=== PATIENT | female | born 1945 | race Caucasian/White ===

== ENCOUNTER 2017-04-30 13:50 | Emergency (ER) | payer MEDICARE, OTHER ==
[~2017-04-30 13:50] MED LIST: BACT800T5 PO; COUM10TA PO; METO25TA6 PO; ROSU40 PO
[2017-04-30 14:05] VITALS: BP 156/80; PULSE 68; RESP 16; TEMP 98.8; O2SAT 97
[2017-04-30] MEDS ORDERED: METO50TA PO (14:24)
[2017-04-30] MEDS ORDERED: SIMV10TA PO (14:24)
[2017-04-30] MEDS ORDERED: JANT1TAB PO (14:24)
--- NOTE | 2017-04-30 14:56 | RADRPT ---
EXAM DATE/TIME: 04/30/2017 14:28 [facility] COMPARISON: No previous studies available for comparison. INDICATIONS : Dropped top of table on top of foot yesterday. Pain on entire top of foot. MEDICAL HISTORY : Hypertension. Hypercholesterolemia. Atrial fibrilation SURGICAL HISTORY : Tubal ligation. Appendectomy.Cardiac ablation. ENCOUNTER: Initial ACUITY: 2 days PAIN SCORE: 7/10 LOCATION: Right Foot. FINDINGS: No definite fractures, dislocations, lytic, or sclerotic lesions are seen. There are degenerative eliza nges within multiple joints mainly the interphalangeal joints and the first metatarsophalangeal joint . There is slight irregularity of the second third and fourth proximal phalanges most likely chronic. CONCLUSION: Chronic changes and no evidence for acute fracture. Kaushik Best MD on April 30, 2017 at 14:51 Board Certified Radiologist. This report was verified electronically.
--- NOTE | 2017-04-30 15:14 | PD ---
HPI Chief Complaint: Injury Time Seen by Provider: 14:50 Travel History International Travel<30 days: No Contact w/Intl Traveler<30days: No Traveled to known affect area: No History of Present Illness HPI 71-year-old female presents to the emergency room for evaluation of right foot pain, swelling, and bruising after injuring it last night. Patient dropped a large glass table on the top of her foot yesterday. States she is mostly concerned because she is on blood thinners and believes her that it will continue bleeding. There is no open wound. She denies significant pain. Reports constant, aching pain worse with range of motion and ambulation. Denies paresthesias. PFSH Past Medical History Hx Anticoagulant Therapy: Yes Arthritis: No Asthma: No Atrial Fibrillation: Yes Autoimmune Disease: No Anxiety: Yes Depression: No Heart Rhythm Problems: Yes (AFIB ABLATION DONE 04/01/11 AND 04/21/11) Cancer: No Cardiomyopathy: Yes Cardiovascular Problems: Yes (afib) High Cholesterol: Yes Chemotherapy: No Chest Pain: Yes Congestive Heart Failure: No COPD: No Cerebrovascular Accident: No Diabetes: No Diminished Hearing: No Endocrine: No Gastrointestinal Disorders: No GERD: No Genitourinary: No Headaches: No Hiatal Hernia: No Heparin Induced Thrombocytopen: No Hypertension: Yes Immune Disorder: No Implanted Vascular Access Dvce: No Kidney Stones: No Musculoskeletal: No Neurologic: No Psychiatric: Yes Reproductive: No Respiratory: Yes (PULMONARY HTN) Immunizations Current: Yes Migraines: No Radiation Therapy: No Renal Failure: No Seizures: No Sickle Cell Disease: No Sleep Apnea: No Thyroid Disease: No Ulcer: No PNEUMOCCOCAL Vaccine (Year): 2009 Menopausal: Yes Tubal Ligation: Yes Past Surgical History Abdominal Surgery: No AICD: No Appendectomy: Yes (at 10 yrs old) Arteriovenous Shunt: No Cardiac Surgery: Yes (CARDIAC ABLATION 04/03 X 2) Ear Surgery: No Endocrine Surgery: No Eye Surgery: No Genitourinary Surgery: No Gynecologic Surgery: No Insulin Pump: No Joint Replacement: No Neurologic Surgery: No Oral Surgery: No Pacemaker: No Thoracic Surgery: No Other Surgery: Yes (R BREAST CYST REMOVED) Social History Alcohol Use: No Tobacco Use: No Substance Use: No Allergies-Medications (Allergen,Severity, Reaction): Coded Allergies: dabigatran etexilate (Unverified Allergy, Severe, Hives, 04/30/17) diltiazem (Unverified Allergy, Severe, Swelling/hives, 04/30/17) lisinopril (Unverified Allergy, Severe, Rash, nausea, 04/30/17) valsartan (Unverified Allergy, Severe, Swelling/hives, 04/30/17) Reported Meds & Prescriptions Reported Meds & Active Scripts Active Reported Simvastatin 10 Mg Tab 10 Mg PO DAILY Jantoven (Warfarin) 1 Mg Tab 1 Mg PO DAILY Metoprolol Tartrate 50 Mg Tab 50 Mg PO BID Review of Systems Except as stated in HPI: all other systems reviewed are Neg Physical Exam Narrative GENERAL: Well-nourished, well-developed female in no acute distress. Afebrile. Ambulatory. SKIN: Focused skin assessment warm/dry. Extreme ecchymosis of the right foot. HEAD: Normocephalic. EYES: No scleral icterus. No injection or drainage. NECK: Supple, trachea midline. No JVD or lymphadenopathy. CARDIOVASCULAR: Regular rate and rhythm without murmurs, gallops, or rubs. RESPIRATORY: Breath sounds equal bilaterally. No accessory muscle use. MSK: Full range motion of the right foot. Less than 2 second capillary refill distally. 2+ dorsalis pedis pulse. Moderate edema of the right foot. Data Data Last Documented VS Vital Signs Date Time Temp Pulse Resp B/P (MAP) Pulse Ox O2 Delivery O2 Flow Rate FiO2 04/30/17 14:05 98.8 68 16 156/80 (105) 97 Orders Orders Foot, Complete ([id number]) (04/30/17 ) [facility] Medical Decision Making Medical Screen Exam Complete: Yes Emergency Medical Condition: Yes Medical Record Reviewed: Yes Differential Diagnosis Contusion, ecchymosis, hematoma, fracture, sprain, strain Narrative Course 71-year-old female presents to the emergency room for evaluation of right foot pain, bruising, and swelling after injuring it last night. Patient dropped a large table on top of her foot. Right lower extremity is neurovascularly intact with 2+ dorsalis pedis pulse. Full range of motion. Less than 2 second capillary refill distally and distal sensation intact. There is extreme ecchymosis and moderate edema of the right foot. X-ray of the foot is negative. This is contusion. Patient given signs and symptoms of compartment syndrome should swelling continued. She was told to follow-up with her primary care physician, elevate, ice, and take Tylenol for pain. Told to return for worsening symptoms as needed. She understands and agrees to plan. Diagnosis Primary Impression: Contusion of right foot Qualified Codes: S90.31XA - Contusion of right foot, initial encounter Referrals: Primary Care Physician Additional Instructions: Rest and drink plenty of fluids. Take Tylenol as directed, as needed for pain. Apply ice to the affected area for 20 minutes at a time, as needed for pain and swelling. Follow-up with a primary care physician. Return to the emergency room for worsening symptoms. Disposition: 01 DISCHARGE HOME Condition: Stable Maryan Grimes Apr 30, 2017 15:14
== END 2017-04-30 15:24 | disposition home or self-care (01) ==
LOC: PHEFT 13:50
DX: S90.31XA Contusion of right foot, initial encounter (principal); I48.91 Unspecified atrial fibrillation; Z79.01 Long term (current) use of anticoagulants; I42.9 Cardiomyopathy, unspecified; I10 Essential (primary) hypertension; E78.00 Pure hypercholesterolemia, unspecified; W20.8XXA Other cause of strike by thrown, projected or falling object, initial encounter; Y99.8 Other external cause status
CPT/HCPCS: 73630; 99283

== ENCOUNTER 2017-12-31 05:38 | Emergency (ER) | payer OTHER ==
[~2017-12-31] VITALS: Ht 167.6 cm; Wt 91.5 kg
[~2017-12-31 05:38] MED LIST changes: -BACT800T5 PO; -COUM10TA PO; +JANT1TAB PO; -METO25TA6 PO; +METO50TA PO; -ROSU40 PO; +SIMV10TA PO
[2017-12-31 05:42] VITALS: BP 179/84; PULSE 70; RESP 18; TEMP 98.4; O2SAT 98
--- NOTE | 2017-12-31 06:26 | PD ---
HPI Chief Complaint: GI Complaint Time Seen by Provider: 05:55 (Portillo Mak MD) Travel History International Travel<30 days: No Contact w/Intl Traveler<30days: No Traveled to known affect area: No (Portillo Mak MD) History of Present Illness HPI Patient has had 4 days of right upper quadrant pain started as a pressure burning-like pain.. Now is radiating towards her mid back pressure that is progressively getting worse. It is not responding to Tylenol. She did not take any other antacids or other medications but she denies any stomach involvement. In 1991 she had a cystlike structure removed from this area but she is unclear whether it was a lipoma or something to do with her liver. Otherwise she does not have any prior surgeries she has not seen another doctor and the pain continues in the ER (Portillo Mak MD) PFSH Past Medical History Hx Anticoagulant Therapy: Yes Arthritis: No Asthma: No Atrial Fibrillation: Yes Autoimmune Disease: No Anxiety: Yes Depression: No Heart Rhythm Problems: Yes (AFIB ABLATION DONE 04/01/11 AND 04/21/11) Cancer: No Cardiomyopathy: Yes Cardiovascular Problems: Yes (afib) High Cholesterol: Yes Chemotherapy: No Chest Pain: Yes Congestive Heart Failure: No COPD: No Cerebrovascular Accident: No Diabetes: No Diminished Hearing: No Endocrine: No Gastrointestinal Disorders: No GERD: No Genitourinary: No Headaches: No Hiatal Hernia: No Heparin Induced Thrombocytopen: No Hypertension: Yes Immune Disorder: No Implanted Vascular Access Dvce: No Kidney Stones: No Musculoskeletal: No Neurologic: No Psychiatric: Yes Reproductive: No Respiratory: Yes (PULMONARY HTN) Immunizations Current: Yes Migraines: No Radiation Therapy: No Renal Failure: No Seizures: No Sickle Cell Disease: No Sleep Apnea: No Thyroid Disease: No Ulcer: No Tetanus Vaccination: < 5 Years PNEUMOCCOCAL Vaccine (Year): 2009 LMP: menopause Menopausal: Yes Tubal Ligation: Yes (Portillo Mak MD) Past Surgical History Abdominal Surgery: No AICD: No Appendectomy: Yes (at 10 yrs old) Arteriovenous Shunt: No Cardiac Surgery: Yes (CARDIAC ABLATION 04/03 X 2) Ear Surgery: No Endocrine Surgery: No Eye Surgery: No Genitourinary Surgery: No Gynecologic Surgery: No Insulin Pump: No Joint Replacement: No Neurologic Surgery: No Oral Surgery: No Pacemaker: No Thoracic Surgery: No Other Surgery: Yes (R BREAST CYST REMOVED) (Portillo Mak MD) Social History Alcohol Use: No Tobacco Use: No Substance Use: No (Portillo Mak MD) Allergies-Medications (Allergen,Severity, Reaction): Coded Allergies: dabigatran etexilate (Verified Allergy, Severe, Hives, 12/31/17) diltiazem (Verified Allergy, Severe, Swelling/hives, 12/31/17) lisinopril (Verified Allergy, Severe, Rash, nausea, 12/31/17) valsartan (Verified Allergy, Severe, Swelling/hives, 12/31/17) Reported Meds & Prescriptions Reported Meds & Active Scripts Active Reported Simvastatin 10 Mg Tab 10 Mg PO DAILY Jantoven (Warfarin) 1 Mg Tab 1 Mg PO DAILY Metoprolol Tartrate 50 Mg Tab 50 Mg PO BID (Navneet Tucker MD) Review of Systems Except as stated in HPI: all other systems reviewed are Neg (Portillo Mak MD) General / Constitutional: No: Fever, Chills Gastrointestinal: No: Vomiting, Diarrhea Skin: No Rash Neurologic: No: Weakness Hematologic/Lymphatic: No: Easy Bruising (Navneet Tucker MD) Physical Exam Narrative GENERAL: Awake alert oriented 3 SKIN: Warm and dry. HEAD: Atraumatic. Normocephalic. EYES: Pupils equal and round. No scleral icterus. No injection or drainage. ENT: No nasal bleeding or discharge. Mucous membranes pink and moist. NECK: Trachea midline. No JVD. CARDIOVASCULAR: Regular rate and rhythm. RESPIRATORY: No accessory muscle use. Clear to auscultation. Breath sounds equal bilaterally. GASTROINTESTINAL: Abdomen positive tenderness in the right upper quadrant no CVA tenderness old scar incision for the cyst that was removed right above her gallbladder area MUSCULOSKELETAL: Extremities without clubbing, cyanosis, or edema. No obvious deformities. NEUROLOGICAL: Awake and alert. No obvious cranial nerve deficits. Motor grossly within normal limits. Five out of 5 muscle strength in the arms and legs. Normal speech. PSYCHIATRIC: Appropriate mood and affect; insight and judgment normal. (Portillo Mak MD) Narrative GENERAL: Well-developed female SKIN: Focused skin assessment warm/dry. HEAD: Atraumatic. Normocephalic. EYES: Pupils equal and round. No scleral icterus. No injection or drainage. ENT: No nasal bleeding or discharge. Mucous membranes pink and moist. NECK: Trachea midline. No JVD. CARDIOVASCULAR: Regular rate and rhythm. No murmur appreciated. RESPIRATORY: No accessory muscle use. Clear to auscultation. Breath sounds equal bilaterally. There is some tenderness of the rib cage around the diaphragm on the right, greatest at the mid axillary line. There is no crepitus felt GASTROINTESTINAL: Abdomen soft, non-tender, nondistended. Hepatic and splenic margins not palpable. MUSCULOSKELETAL: No obvious deformities. No clubbing. No cyanosis. No edema. NEUROLOGICAL: Awake and alert. No obvious cranial nerve deficits. Motor grossly within normal limits. Normal speech. PSYCHIATRIC: Appropriate mood and affect; insight and judgment normal. (Navneet Tucker MD) Data Data Last Documented VS Vital Signs Date Time Temp Pulse Resp B/P (MAP) Pulse Ox O2 Delivery O2 Flow Rate FiO2 12/31/17 06:59 16 12/31/17 05:42 98.4 70 179/84 (115) 98 (Navneet Tucker MD) Orders Orders Complete Blood Count With Diff (12/31/17 06:10) Comprehensive Metabolic Panel (12/31/17 06:10) Lipase (12/31/17 06:10) Urinalysis - C+S If Indicated (12/31/17 06:10) Sodium Chlorid 0.9% 500 Ml Inj (Ns 500 M (12/31/17 06:30) Chest, Pa & Lat (12/31/17 ) Prothrombin Time / Inr (Pt) (12/31/17 07:04) Act Partial Throm Time (Ptt) (12/31/17 07:04) Ct Abd/Pel W Iv Contrast(Rout) (12/31/17 07:04) Iohexol 350 Inj (Omnipaque 350 Inj) (12/31/17 07:36) (Navneet Tucker MD) Labs Laboratory Tests Test 12/31/17 06:23 12/31/17 06:28 12/31/17 07:11 Urine Color YELLOW Urine Turbidity CLEAR Urine pH 5.5 Urine Specific [place] LESS/EQUAL 1.005 Urine Protein NEG mg/dL Urine Glucose (UA) NEG mg/dL Urine Ketones NEG mg/dL Urine Occult Blood LARGE Urine Nitrite NEG Urine Bilirubin NEG Urine Urobilinogen 0.2 MG/DL Urine Leukocyte Esterase NEG Urine RBC 0-3 /hpf Urine WBC 0-2 /hpf Microscopic Urinalysis Comment CULT NOT INDICATED White Blood Count 7.2 TH/MM3 Red Blood Count 4.71 MIL/MM3 Hemoglobin 13.7 GM/DL Hematocrit 40.8 % Mean Corpuscular Volume 86.5 FL Mean Corpuscular Hemoglobin 29.0 PG Mean Corpuscular Hemoglobin Concent 33.5 % Red Cell Distribution Width 13.4 % Platelet Count 215 TH/MM3 Mean Platelet Volume 8.7 FL Neutrophils (%) (Auto) 63.4 % Lymphocytes (%) (Auto) 25.0 % Monocytes (%) (Auto) 8.1 % Eosinophils (%) (Auto) 2.7 % Basophils (%) (Auto) 0.8 % Neutrophils # (Auto) 4.4 TH/MM3 Lymphocytes # (Auto) 1.8 TH/MM3 Monocytes # (Auto) 0.6 TH/MM3 Eosinophils # (Auto) 0.2 TH/MM3 Basophils # (Auto) 0.1 TH/MM3 CBC Comment DIFF FINAL Differential Comment Blood Urea Nitrogen 14 MG/DL Creatinine 0.59 MG/DL Random Glucose 106 MG/DL Total Protein 7.4 GM/DL Albumin 3.8 GM/DL Calcium Level 9.2 MG/DL Alkaline Phosphatase 121 U/L Aspartate Amino Transf (AST/SGOT) 25 U/L Alanine Aminotransferase (ALT/SGPT) 41 U/L Total Bilirubin 0.5 MG/DL Sodium Level 141 MEQ/L Potassium Level 3.7 MEQ/L Chloride Level 108 MEQ/L Carbon Dioxide Level 26.5 MEQ/L Anion Gap 7 MEQ/L Estimat Glomerular Filtration Rate 100 ML/MIN Lipase 96 U/L Prothrombin Time 27.5 SEC Prothromb Time International Ratio 2.7 RATIO Activated Partial Thromboplast Time 37.7 SEC (Navneet Tucker MD) [facility] Medical Decision Making Medical Screen Exam Complete: Yes Emergency Medical Condition: Yes (Portillo Mak MD) Medical Screen Exam Complete: Yes Emergency Medical Condition: Yes Medical Record Reviewed: Yes Differential Diagnosis Differential includes neuralgia, kidney stone, cholelithiasis, prodrome of zoster Narrative Course CT scan was done and does not show an etiology for the pain. Her pain is not related to eating and so gallbladder disease seems unlikely. There is no hematuria. This is suggestive of a neuralgia as it does somewhat wraparound the chest wall. She is on Coumadin so is limited what she can take for pain. It has been keeping her awake. I will prescribe some Flexeril to see if this helps her at night. (Navneet Tucker MD) Diagnosis Primary Impression: Right upper quadrant pain Scripts Cyclobenzaprine (Flexeril) 10 Mg Tab 10 MG PO TID for Muscle Spasm for 7 Days, #20 TAB 0 Refills Prov: Navneet Tucker MD 12/31/17 Disposition: 01 DISCHARGE HOME Condition: Stable Portillo Mak MD December 31, 2017 06:26 Navneet Tucker MD December 31, 2017 08:22
[2017-12-31] MEDS ORDERED: SODIUM CHLORID 0.9% 500 ML INJ 500 ML IV ONE (06:30)
[2017-12-31 06:45] LABS: AUTOMATED NEUTROPHIL # 4.4 TH/MM3 (1.8-7.7); BASOPHIL # 0.1 TH/MM3 (0-0.2); BASOPHIL % 0.8 % (0.0-2.0); EOSINOPHIL # 0.2 TH/MM3 (0-0.4); EOSINOPHIL % 2.7 % (0.0-4.0); HEMATOCRIT 40.8 % (35.0-46.0); HEMOGLOBIN 13.7 GM/DL (11.6-15.3); LYMPHOCYTE # 1.8 TH/MM3 (1.0-4.8); MEAN CELL VOLUME 86.5 FL (80.0-100.0); MEAN CORPUSCULAR HGB CONC 33.5 % (32.0-36.0); MEAN PLATELET VOLUME 8.7 FL (7.0-11.0); MONO % 8.1 % (0.0-8.0); MONOCYTE # 0.6 TH/MM3 (0-0.9); NEUT % 63.4 % (16.0-70.0); PLATELET COUNT 215 TH/MM3 (150-450); RED BLOOD COUNT 4.71 MIL/MM3 (4.00-5.30); RED CELL DISTRIBUTION WIDTH 13.4 % (11.6-17.2); WHITE BLOOD COUNT 7.2 TH/MM3 (4.0-11.0)
[2017-12-31 06:50] LABS: CHLORIDE 108 MEQ/L (98-107); SODIUM (NA) 141 MEQ/L (136-145)
[2017-12-31 06:50] LABS: BILIRUBIN, URINE NEG (NEG); BLOOD, URINE LARGE (NEG); GLUCOSE,URINE NEG (NEG); KETONE, URINE NEG (NEG); NITRITE,URINE NEG (NEG); PH, URINE 5.5 (5.0-8.5); URINE COLOR YELLOW (YELLW/STRAW); URINE LEUKOCYTE ESTERASE NEG (NEG)
--- NOTE | 2017-12-31 06:51 | RADRPT ---
EXAM DATE/TIME: 12/31/2017 06:33 [facility] COMPARISON: CHEST SINGLE AP, September 15, 2015, 18:27. INDICATIONS : Right sided chest pain for 4 days MEDICAL HISTORY : None. SURGICAL HISTORY : None. ENCOUNTER: Initial ACUITY: 4 - 6 days PAIN SCORE: 7/10 LOCATION: Right chest FINDINGS: PA and lateral views of the chest demonstrate the lungs to be symmetrically aerated without evidence of mass, infiltrate or effusion. The cardiomediastinal contours are unremarkable. Osseous structure s are intact. CONCLUSION: No acute disease. Rob Mason MD on December 31, 2017 at 6:49 Board Certified Radiologist. This report was verified electronically.
[2017-12-31 06:54] LABS: ALBUMIN 3.8 GM/DL (3.4-5.0); BICARBONATE 26.5 MEQ/L (21.0-32.0); BLOOD UREA NITROGEN 14 MG/DL (7-18); CALCIUM 9.2 MG/DL (8.5-10.1); GLUCOSE,RANDOM 106 MG/DL (74-106)
[2017-12-31 06:55] LABS: RBC, URINE 0-3 /hpf (0-3); WBC, URINE 0-2 /hpf (0-5)
[2017-12-31 06:57] LABS: ALT (GPT) 41 U/L (10-53); AST (GOT) 25 U/L (15-37); CREATININE 0.59 MG/DL (0.50-1.00); GLOMERULAR FILTRATION RATE 100 ML/MIN (>89)
[2017-12-31 06:59] LABS: TOTAL BILIRUBIN ADULT 0.5 MG/DL (0.2-1.0); TOTAL PROTEIN 7.4 GM/DL (6.4-8.2)
[2017-12-31 07:00] LABS: ALKALINE PHOSPHATASE 121 U/L (45-117)
--- NOTE | 2017-12-31 07:14 | PD ---
HPI Chief Complaint: GI Complaint Time Seen by Provider: 07:07 Travel History International Travel<30 days: No Contact w/Intl Traveler<30days: No Traveled to known affect area: No History of Present Illness HPI 72-year-old female is having pain in the right upper quadrant/right flank area. She says the pains been going on for 3 or 4 days. It was initially intermittent but now is been fairly constant. It is not affected by eating. It does not appear to be affected by movement. There is no history of trauma. There is no fever or chills. PFSH Past Medical History Hx Anticoagulant Therapy: Yes Arthritis: No Asthma: No Atrial Fibrillation: Yes Autoimmune Disease: No Anxiety: Yes Depression: No Heart Rhythm Problems: Yes (AFIB ABLATION DONE 04/01/11 AND 04/21/11) Cancer: No Cardiomyopathy: Yes Cardiovascular Problems: Yes (afib) High Cholesterol: Yes Chemotherapy: No Chest Pain: Yes Congestive Heart Failure: No COPD: No Cerebrovascular Accident: No Diabetes: No Diminished Hearing: No Endocrine: No Gastrointestinal Disorders: No GERD: No Genitourinary: No Headaches: No Hiatal Hernia: No Heparin Induced Thrombocytopen: No Hypertension: Yes Immune Disorder: No Implanted Vascular Access Dvce: No Kidney Stones: No Musculoskeletal: No Neurologic: No Psychiatric: Yes Reproductive: No Respiratory: Yes (PULMONARY HTN) Immunizations Current: Yes Migraines: No Radiation Therapy: No Renal Failure: No Seizures: No Sickle Cell Disease: No Sleep Apnea: No Thyroid Disease: No Ulcer: No Tetanus Vaccination: < 5 Years PNEUMOCCOCAL Vaccine (Year): 2009 LMP: menopause Menopausal: Yes Tubal Ligation: Yes Past Surgical History Abdominal Surgery: No AICD: No Appendectomy: Yes (at 10 yrs old) Arteriovenous Shunt: No Cardiac Surgery: Yes (CARDIAC ABLATION 04/03 X 2) Ear Surgery: No Endocrine Surgery: No Eye Surgery: No Genitourinary Surgery: No Gynecologic Surgery: No Insulin Pump: No Joint Replacement: No Neurologic Surgery: No Oral Surgery: No Pacemaker: No Thoracic Surgery: No Other Surgery: Yes (R BREAST CYST REMOVED) Social History Alcohol Use: No Tobacco Use: No Substance Use: No Allergies-Medications (Allergen,Severity, Reaction): Coded Allergies: dabigatran etexilate (Verified Allergy, Severe, Hives, 12/31/17) diltiazem (Verified Allergy, Severe, Swelling/hives, 12/31/17) lisinopril (Verified Allergy, Severe, Rash, nausea, 12/31/17) valsartan (Verified Allergy, Severe, Swelling/hives, 12/31/17) Reported Meds & Prescriptions Reported Meds & Active Scripts Active Flexeril (Cyclobenzaprine HCl) 10 Mg Tab 10 Mg PO TID 7 Days Reported Simvastatin 10 Mg Tab 10 Mg PO DAILY Jantoven (Warfarin) 1 Mg Tab 1 Mg PO DAILY Metoprolol Tartrate 50 Mg Tab 50 Mg PO BID Review of Systems General / Constitutional: No: Fever, Chills Respiratory: No: Cough, Shortness of Breath Gastrointestinal: No: Nausea Genitourinary: No: Frequency Musculoskeletal: Positive: Pain Physical Exam Narrative GENERAL: Well-developed female SKIN: Focused skin assessment warm/dry. HEAD: Atraumatic. Normocephalic. EYES: Pupils equal and round. No scleral icterus. No injection or drainage. ENT: No nasal bleeding or discharge. Mucous membranes pink and moist. NECK: Trachea midline. No JVD. CARDIOVASCULAR: Regular rate and rhythm. No murmur appreciated. RESPIRATORY: No accessory muscle use. Clear to auscultation. Breath sounds equal bilaterally. There is some tenderness in the right lateral rib cage around the midaxillary line is no discernible swelling GASTROINTESTINAL: Abdomen soft, non-tender, nondistended. Hepatic and splenic margins not palpable. MUSCULOSKELETAL: No obvious deformities. No clubbing. No cyanosis. No edema. NEUROLOGICAL: Awake and alert. No obvious cranial nerve deficits. Motor grossly within normal limits. Normal speech. PSYCHIATRIC: Appropriate mood and affect; insight and judgment normal. Data Data Last Documented VS Vital Signs Date Time Temp Pulse Resp B/P (MAP) Pulse Ox O2 Delivery O2 Flow Rate FiO2 12/31/17 08:31 62 18 151/83 (105) 98 21 12/31/17 05:42 98.4 Orders Orders Complete Blood Count With Diff (12/31/17 06:10) Comprehensive Metabolic Panel (12/31/17 06:10) Lipase (12/31/17 06:10) Urinalysis - C+S If Indicated (12/31/17 06:10) Sodium Chlorid 0.9% 500 Ml Inj (Ns 500 M (12/31/17 06:30) Chest, Pa & Lat (12/31/17 ) Prothrombin Time / Inr (Pt) (12/31/17 07:04) Act Partial Throm Time (Ptt) (12/31/17 07:04) Ct Abd/Pel W Iv Contrast(Rout) (12/31/17 07:04) Iohexol 350 Inj (Omnipaque 350 Inj) (12/31/17 07:36) Ed Discharge Order (12/31/17 08:23) Labs Laboratory Tests Test 12/31/17 06:23 12/31/17 06:28 12/31/17 07:11 Urine Color YELLOW Urine Turbidity CLEAR Urine pH 5.5 Urine Specific [place] LESS/EQUAL 1.005 Urine Protein NEG mg/dL Urine Glucose (UA) NEG mg/dL Urine Ketones NEG mg/dL Urine Occult Blood LARGE Urine Nitrite NEG Urine Bilirubin NEG Urine Urobilinogen 0.2 MG/DL Urine Leukocyte Esterase NEG Urine RBC 0-3 /hpf Urine WBC 0-2 /hpf Microscopic Urinalysis Comment CULT NOT INDICATED White Blood Count 7.2 TH/MM3 Red Blood Count 4.71 MIL/MM3 Hemoglobin 13.7 GM/DL Hematocrit 40.8 % Mean Corpuscular Volume 86.5 FL Mean Corpuscular Hemoglobin 29.0 PG Mean Corpuscular Hemoglobin Concent 33.5 % Red Cell Distribution Width 13.4 % Platelet Count 215 TH/MM3 Mean Platelet Volume 8.7 FL Neutrophils (%) (Auto) 63.4 % Lymphocytes (%) (Auto) 25.0 % Monocytes (%) (Auto) 8.1 % Eosinophils (%) (Auto) 2.7 % Basophils (%) (Auto) 0.8 % Neutrophils # (Auto) 4.4 TH/MM3 Lymphocytes # (Auto) 1.8 TH/MM3 Monocytes # (Auto) 0.6 TH/MM3 Eosinophils # (Auto) 0.2 TH/MM3 Basophils # (Auto) 0.1 TH/MM3 CBC Comment DIFF FINAL Differential Comment Blood Urea Nitrogen 14 MG/DL Creatinine 0.59 MG/DL Random Glucose 106 MG/DL Total Protein 7.4 GM/DL Albumin 3.8 GM/DL Calcium Level 9.2 MG/DL Alkaline Phosphatase 121 U/L Aspartate Amino Transf (AST/SGOT) 25 U/L Alanine Aminotransferase (ALT/SGPT) 41 U/L Total Bilirubin 0.5 MG/DL Sodium Level 141 MEQ/L Potassium Level 3.7 MEQ/L Chloride Level 108 MEQ/L Carbon Dioxide Level 26.5 MEQ/L Anion Gap 7 MEQ/L Estimat Glomerular Filtration Rate 100 ML/MIN Lipase 96 U/L Prothrombin Time 27.5 SEC Prothromb Time International Ratio 2.7 RATIO Activated Partial Thromboplast Time 37.7 SEC MDM Medical Decision Making Medical Screen Exam Complete: Yes Emergency Medical Condition: Yes Medical Record Reviewed: Yes Differential Diagnosis Differential includes biliary disease, neuralgia, renal colic, Narrative Course CT was obtained and does not show an etiology for the pain. Suspect this is a neuralgia. Possibility also of prodrome of shingles Diagnosis Primary Impression: Right upper quadrant pain Scripts Cyclobenzaprine (Flexeril) 10 Mg Tab 10 MG PO TID for Muscle Spasm for 7 Days, #20 TAB 0 Refills Prov: Navneet Tucker MD 12/31/17 Disposition: 01 DISCHARGE HOME Condition: Stable Navneet Tucker MD December 31, 2017 07:14
[2017-12-31 07:33] LABS: INTERNATIONAL NORMALIZED RATIO 2.7 RATIO; PROTHROMBIN TIME - PATIENT 27.5 SEC (9.8-11.6)
[2017-12-31] MEDS ORDERED: IOHEXOL 350 MG/ML 10 ML VIAL (for RAD DIAG) IVCONTRAST ONE (07:36)
--- NOTE | 2017-12-31 07:55 | RADRPT ---
EXAM DATE/TIME: 12/31/2017 07:28 [place] COMPARISON: CT ABDOMEN & PELVIS W CONTRAST, September 15, 2015, 19:37. INDICATIONS : Right upper quadrant and right flank pain x 4 days. IV CONTRAST: 90 cc Omnipaque 350 (iohexol) IV ORAL CONTRAST: No oral contrast ingested. RADIATION DOSE: 18.76 CTDIvol (mGy) MEDICAL HISTORY : Cardiovascular disease. Hypertension. Aneurysm, abdominal. SURGICAL HISTORY : Abdominal aortic aneurysm repair. Tubal ligation.Cardiac ablation. ENCOUNTER: Initial ACUITY: 4 - 6 days PAIN SCALE: 4/10 LOCATION: Right upper quadrant TECHNIQUE: Volumetric scanning of the abdomen and pelvis was performed. Using automated exposure control and ad justment of the mA and/or kV according to patient size, radiation dose was kept as low as reasonably achievable to obtain optimal diagnostic quality images. DICOM format image data is available electro nically for review and comparison. FINDINGS: LOWER LUNGS: The visualized lower lungs are clear. LIVER: Sub-5 mm hypodense lesions in segments 7 and 4 the liver which are too small to fully characterize. M inimal focal fat adjacent to falciform ligament in segment 2. Liver is otherwise unremarkable. No zack cified gallstones. SPLEEN: Normal size without lesion. PANCREAS: Within normal limits. KIDNEYS: Normal in size and shape. There is no mass, stone or hydronephrosis. ADRENAL GLANDS: Within normal limits. VASCULAR: Abdominal aorta is non-aneurysmal despite history. BOWEL/MESENTERY: Mild sigmoid diverticulosis. Bowel otherwise appears unremarkable without evidence for obstruction. N o pneumatosis or free air. No drainable fluid collections. ABDOMINAL WALL: Very small fat containing periumbilical hernia. RETROPERITONEUM: There is no lymphadenopathy. BLADDER: No wall thickening or mass. REPRODUCTIVE: 3.2 x 1.3 cm right adnexal hypodense lesion not previously demonstrated, likely ovarian in etiology. INGUINAL: There is no lymphadenopathy or hernia. MUSCULOSKELETAL: Multilevel degenerative spondylosis of the lumbar spine. CONCLUSION: 1. No acute CT abnormality in the abdomen or pelvis. 2. 3.2 x 1.3 cm right adnexal hypodense lesion not demonstrated on CT examination of 09/15/2015. This is likely ovarian in etiology and may reflect an ovarian cystic lesion. Further evaluation may be per formed with pelvic ultrasound exam on an outpatient basis as clinically warranted. 3. Ancillary findings include sigmoid diverticulosis, very small fat containing periumbilical hernia, and stable sub-5 mm hypodense lesions in the liver which are too small to fully characterize but lik marlo reflecting cysts. David Hart MD on December 31, 2017 at 7:43 Board Certified Radiologist. This report was verified electronically.
[2017-12-31] MEDS ORDERED: CYCL10TA PO (08:21)
[2017-12-31 08:31] VITALS: BP 151/83
== END 2017-12-31 08:32 | disposition home or self-care (01) ==
LOC: PHED 05:38
DX: R10.11 Right upper quadrant pain (principal); I48.91 Unspecified atrial fibrillation; K57.30 Diverticulosis of large intestine without perforation or abscess without bleeding; K42.9 Umbilical hernia without obstruction or gangrene; F41.9 Anxiety disorder, unspecified; I42.9 Cardiomyopathy, unspecified; E78.00 Pure hypercholesterolemia, unspecified; I10 Essential (primary) hypertension; Z79.899 Other long term (current) drug therapy
CPT/HCPCS: 71046; 74177; 80053; 81001; 83690; 85025; 85610; 85730; 99285; J7040; Q9967

== ENCOUNTER 2018-01-03 09:16 | Emergency (ER) | payer OTHER ==
[~2018-01-03] VITALS: Ht 167.6 cm; Wt 98.2 kg
[~2018-01-03 09:16] MED LIST changes: +CYCL10TA PO
[2018-01-03 09:38] VITALS: BP 169/78; PULSE 64; RESP 16; TEMP 98.2; O2SAT 98
[2018-01-03] MEDS ORDERED: LORA0.5T PO (10:01)
[2018-01-03] MEDS ORDERED: JANT7.5T PO (10:01)
[2018-01-03] MEDS ORDERED: JANT5TAB PO (10:01)
[2018-01-03] MEDS ORDERED: ROSU5 PO (10:01)
[2018-01-03] MEDS ORDERED: PERC5TAB12 PO (10:38)
[2018-01-03] MEDS: oxyCODONE/ACETAMINOPHEN 5 MG/325 MG TAB PO ONE (10:38)
[2018-01-03] MEDS ORDERED: MEDR4PAK PO (10:38)
[2018-01-03] MEDS ORDERED: ACYC800T PO (10:38)
--- NOTE | 2018-01-03 10:38 | PD ---
HPI Chief Complaint: Skin Problem Time Seen by Provider: 09:58 Travel History International Travel<30 days: No Contact w/Intl Traveler<30days: No Traveled to known affect area: No History of Present Illness HPI This is a 72-year-old female here with a painful rash of her right mid back wrapping around to the right breast. Rash erupted last night. Denies fever chills. She was seen several days prior for right upper quadrant pain and told that this was possibly early shingles. Symptom severity is moderate. She reports constant pain at the site of the rash. No aggravating or alleviating factors. PFSH Past Medical History Hx Anticoagulant Therapy: Yes Arthritis: No Asthma: No Atrial Fibrillation: Yes Autoimmune Disease: No Anxiety: Yes Depression: No Heart Rhythm Problems: Yes (AFIB ABLATION DONE 04/01/11 AND 04/21/11) Cancer: No Cardiomyopathy: Yes Cardiovascular Problems: Yes (afib) High Cholesterol: Yes Chemotherapy: No Chest Pain: Yes Congestive Heart Failure: No COPD: No Cerebrovascular Accident: No Diabetes: No Diminished Hearing: No Endocrine: No Gastrointestinal Disorders: No GERD: No Genitourinary: No Headaches: No Hiatal Hernia: No Heparin Induced Thrombocytopen: No Hypertension: Yes Immune Disorder: No Implanted Vascular Access Dvce: No Kidney Stones: No Musculoskeletal: No Neurologic: No Psychiatric: Yes Reproductive: No Respiratory: Yes (PULMONARY HTN) Immunizations Current: Yes Migraines: No Radiation Therapy: No Renal Failure: No Seizures: No Sickle Cell Disease: No Sleep Apnea: No Thyroid Disease: No Ulcer: No PNEUMOCCOCAL Vaccine (Year): 2009 ?: Not Menopausal: Yes Tubal Ligation: Yes Past Surgical History Abdominal Surgery: No AICD: No Appendectomy: Yes (at 10 yrs old) Arteriovenous Shunt: No Cardiac Surgery: Yes (CARDIAC ABLATION 04/03 X 2) Ear Surgery: No Endocrine Surgery: No Eye Surgery: No Genitourinary Surgery: No Gynecologic Surgery: No Insulin Pump: No Joint Replacement: No Neurologic Surgery: No Oral Surgery: No Pacemaker: No Thoracic Surgery: No Other Surgery: Yes (R BREAST CYST REMOVED) Social History Alcohol Use: No Tobacco Use: No Substance Use: No Allergies-Medications (Allergen,Severity, Reaction): Coded Allergies: dabigatran etexilate (Verified Allergy, Severe, Hives, 01/03/18) diltiazem (Verified Allergy, Severe, Swelling/hives, 01/03/18) lisinopril (Verified Allergy, Severe, Rash, nausea, 01/03/18) valsartan (Verified Allergy, Severe, Swelling/hives, 01/03/18) Reported Meds & Prescriptions Reported Meds & Active Scripts Active Medrol Dosepak (Methylprednisolone) 4 Mg Dspk 4 Mg PO DIRECTED Per Pharmacist direction Percocet (Oxycodone-Acetaminophen) 5-325 mg Tab 1 Tab PO Q6H PRN Acyclovir 800 Mg Tab 800 Mg PO 5 TIMES A DAY 7 Days Reported Lorazepam 0.5 Mg Tab 0.5 Mg PO DAILY PRN Crestor (Rosuvastatin Calcium) 5 Mg Tab 5 Mg PO DAILY Jantoven (Warfarin) 5 Mg Tab 5 Mg PO TUTHSASU Jantoven (Warfarin) 7.5 Mg Tab 7.5 Mg PO MOWEFR Metoprolol Tartrate 50 Mg Tab 50 Mg PO BID Review of Systems Except as stated in HPI: all other systems reviewed are Neg Physical Exam Narrative GENERAL: Alert and well-appearing 72-year-old female SKIN: Warm and dry. Erythematous vesicular rash to the right thorax wrapping around to the right breast it does not cross the midline. This appears to be herpes zoster. Area is painful to palpation HEAD: Normocephalic. EYES: No scleral icterus. No injection or drainage. NECK: Supple CARDIOVASCULAR: Regular rate and rhythm without murmurs, gallops, or rubs. RESPIRATORY: Breath sounds equal bilaterally. No accessory muscle use. GASTROINTESTINAL: Abdomen soft, non-tender, nondistended. MUSCULOSKELETAL: No cyanosis, or edema. BACK: Nontender without obvious deformity. No CVA tenderness. Data Data Last Documented VS Vital Signs Date Time Temp Pulse Resp B/P (MAP) Pulse Ox O2 Delivery O2 Flow Rate FiO2 01/03/18 09:38 98.2 64 16 169/78 (108) 98 Orders Orders Ondansetron Odt (Zofran Odt) (01/03/18 10:45) Oxycodone-Acetamin 5-325 Mg (Percocet (01/03/18 10:45) MDM Medical Decision Making Medical Screen Exam Complete: Yes Emergency Medical Condition: Yes Differential Diagnosis Herpes zoster, contact dermatitis, other Narrative Course 72-year-old female here with herpes zoster Diagnosis Primary Impression: Herpes zoster Qualified Codes: B02.9 - Zoster without complications Referrals: Primary Care Physician Additional Instructions: Medications as directed. Applying cool compresses to the area may help alleviate some pain. Follow-up with her primary doctor. Scripts Methylprednisolone Dosepak (Medrol Dosepak) 4 Mg Dspk 4 MG PO DIRECTED, #1 DSPK 0 Refills Per Pharmacist direction Prov: Rosa Isela Bahena 01/03/18 Oxycodone-Acetaminophen (Percocet) 5-325 mg Tab 1 TAB PO Q6H Y for PAIN, #15 TAB 0 Refills Prov: Rosa Isela Bahena 01/03/18 Acyclovir (Acyclovir) 800 Mg Tab 800 MG PO 5 TIMES A DAY for Mgmt Viral Infection for 7 Days, TAB 0 Refills Prov: Rosa Isela Bahena 01/03/18 Disposition: 01 DISCHARGE HOME Condition: Stable Rosa Isela Bahena January 03, 2018 10:38
[2018-01-03] MEDS: ONDANSETRON ODT 4 MG TAB PO ONE (10:39)
== END 2018-01-03 11:57 | disposition home or self-care (01) ==
LOC: PHEFT 09:16
DX: B02.9 Zoster without complications (principal); E78.00 Pure hypercholesterolemia, unspecified; F41.9 Anxiety disorder, unspecified; I10 Essential (primary) hypertension; I48.91 Unspecified atrial fibrillation
CPT/HCPCS: 99283